=== PATIENT | female | born 1985 | race Caucasian/White ===

== ENCOUNTER 2017-05-17 12:50 | Inpatient (IN) | payer OTHER ==
[~2017-05-17] VITALS: Ht 167.6 cm; Wt 75.3 kg
--- NOTE | 2017-05-19 12:16 | HP ---
ADMIT: 05/17/2017 RM/LOC: 228 [facility] MR#: [id number] [address] [facility] [address] [place], [place] [address] [address] [place] [address] Pre-OP History and Physical SEX: F AGE: 31 : 1985 DATE OF SERVICE: PRINCIPAL DIAGNOSES: 1. Term intrauterine . 2. Non-reassuring heart tones. HISTORY OF PRESENT ILLNESS: The patient is a 31-year-old white female 1, para 0, who presented at 39 and 6/7 weeks' estimated gestational age with spontaneous rupture of membranes. The patient was admitted, noted to be shanel regularly, was not changing her cervix. She was begun on Pitocin augmentation. She began having occasional late heart rate decelerations which progressed to repetitive late heart rate decelerations with some decreased variability. The patient on admission was approximately 4 cm dilated, was 5 cm dilated several hours after admission. Uterine contractions by intrauterine pressure catheter were not adequate. PREVIOUS MEDICAL HISTORY: She denies any significant previous medical history. SOCIAL HISTORY: She does not smoke, drink, or use drugs. FAMILY HISTORY: Significant for diabetes, pancreatic cancer, breast cancer, hypertension. ALLERGIES: THE PATIENT STATES SHE IS INTOLERANT TO SULFA DRUGS WHICH CAUSE VOMITING. ALLERGIC TO TETRACYCLINES AND MINOCYCLINE WHICH CAUSE HIVES AND IS ALSO ALLERGIC TO PRILOSEC. PHYSICAL EXAMINATION: GENERAL: The patient is a well-developed, well- nourished white female. Alert and oriented, in no apparent distress. PELVIC: Uterine contractions are occurring somewhat irregularly every 1 to 4 minutes. heart tones are in the 140s with mild late-appearing heart rate decelerations but moderate variability. Cervix is 5 cm dilated. ASSESSMENT: Term intrauterine with spontaneous rupture of membranes with nonreassuring heart tones. We reviewed management options with the patient including options of continued attempt at vaginal delivery versus ADMIT: 05/17/2017 RM/LOC: 228 [facility] MR#: [id number] [facility] [address] [place] [id number] DIPIKA ASHTON [address] [place] [address] Pre-OP History and Physical SEX: F AGE: 31 : 1985 proceeding with a primary low transverse section. Given the heart rate decelerations and the patient being remote from delivery, the patient and patient's both opt to proceed with primary low transverse section. We discussed risks involved with surgery including risks of infection, risk of bleeding with possible need for blood transfusion, and the attendant infectious risks inherent in blood transfusion. We also discussed risk of damage to other organs including, but not limited to, bowel, bladder, major blood vessels, and ureters with possible need for additional surgery and repair should such damage occur. The patient voiced understanding of the risks, benefits, and alternatives to the proposed procedure and desires to proceed with primary low transverse section. Fermin Del Real MD/ rhonda JOB #: [id number] CC: Namrata Rojo, Attending Physician Namrata Rojo, Family Physician
--- NOTE | 2017-05-19 12:16 | OR ---
ADMIT: 05/17/2017 RM/LOC: 228 [facility] MR#: [id number] [address] [facility] [address] [place], [place] [address] DIPIKA ASHTON Desiree [address] [facility] [place] [address] Operative/Delivery Room Report SEX: F AGE: 31 : 1985 SURGERY DATE: 05/17/2017 SURGEON: Fermin Del Real MD PRINCIPAL DIAGNOSES: 1. Term intrauterine . 2. Non-reassuring heart tones. POSTOPERATIVE DIAGNOSES: 1. Term intrauterine . 2. Non-reassuring heart tones. PROCEDURE: Primary low transverse section. [employer] DEVELOPER: Vern Hillman MD Resident. INDICATION: The patient is a 31-year-old white female, 1, para 0, who presented at 39 and 6/7 weeks' estimated gestational age with spontaneous rupture of membranes, approximately 4 cm dilated. Over the course of the afternoon, she had slow progression to a maximum dilation of approximately 5 cm and began having repetitive late heart rate decelerations. We reviewed management options with the patient. She declined continued attempt at vaginal delivery and desired primary low-transverse section. ANESTHESIA: Spinal. ESTIMATED BLOOD LOSS: 500 mL. COMPLICATIONS: None. FINDINGS: Viable male infant, 8 pounds with score of 8 at 1 and 9 at 5 minutes. PROCEDURE IN DETAIL: When the patient was noted to be under adequate anesthesia, she was prepped and draped in the usual fashion in dorsal supine position with a leftward tilt. A transverse skin incision was made with a scalpel and carried through sharply to the underlying layer of fascia. Fascia was nicked in the midline, and the fascial incision was extended laterally with Morrison scissors. The fascia was dissected off the underlying rectus muscles. The rectus muscles were in the midline. The parietal peritoneum was identified, tented up with Tianna clamps, and entered sharply with Morrison scissors. This incision was then extended superiorly and inferiorly with a combination of sharp and blunt dissection with good visualization of the bladder. Bladder blade was then inserted and a bladder flap was created with a combination of sharp and blunt dissection. The uterus was nicked in the midline, and the uterine incision was extended laterally with blunt digital dissection. 's head was then delivered atraumatically. The neck was examined for nuchal cord and none was noted. The remainder of the infant was delivered. Cord was clamped x2, cut, and the infant was handed off ADMIT: 05/17/2017 RM/LOC: [address] [facility] MR#: [id number] [address] [address] DIPIKA ASHTON [address] [place] [address] Operative/Delivery Room Report SEX: F AGE: 31 : 1985 to the waiting nursing staff. Placenta was then delivered intact with normal appearance. The uterus was exteriorized and cleared of all clots and debris. The endometrial cavity was swept with a moist laparotomy sponge to remove any remaining products of conception. The uterine incision was then reapproximated with a running locked length of 0 Vicryl with good hemostasis noted. The patient's abdomen was then suctioned. The uterus was returned to the patient's abdomen. The paracolic gutters were cleared of all clots and debris. Uterine incision was again inspected and noted to be hemostatic. Subfascial compartments were then inspected and noted to be hemostatic and the fascia was then reapproximated with a single running length of 0 Vicryl. Subcutaneous tissue was then inspected, noted to be hemostatic, and was reapproximated with several interrupted sutures of 3-0 plain gut, and the skin was then closed with Insorb subcuticular judy. The patient tolerated the procedure well and was taken to the recovery room in stable condition. All sponge, instrument, and needle counts were correct. Fermin Del Real MD/ rhonda JOB #: [id number] CC: Namrata Rojo, Attending Physician Namrata Rojo, Family Physician
[2017-05-22] MEDS ORDERED: PRENATAL VITAM1 EAC6 PO (18:46)
[2017-05-22] MEDS ORDERED: COLACE-DPS100 MG PO (18:46)
[2017-05-22] MEDS ORDERED: CALCIUM600 MG PO (18:46)
[2017-05-22] MEDS ORDERED: MOTRIN-DPS800 MG PO (18:46)
[2017-05-22] MEDS ORDERED: NIPPLECREAM TP (18:47)
[2017-05-22] MEDS ORDERED: PERCOCET 5-3251 EACH PO (18:47)
== END 2017-05-21 12:49 | disposition home or self-care (01) | DRG 766 ==
LOC: BC 12:50 → 2LDRP 12:50 → BC 05-18 11:57 → 2LDRP 05-21 12:49
PROVIDERS: ADMIT Obstetrics & Gynecology
PROC: 10D00Z1 Extraction of Products of Conception, Low, Open Approach (ICD-10-PCS; principal; 2017-05-17)
DX: O76 Abnormality in fetal heart rate and rhythm complicating labor and delivery (principal); Z37.0 Single live birth; Z3A.39 39 weeks gestation of pregnancy